=== PATIENT | male | born 1965 | race Caucasian/White ===

== ENCOUNTER 2019-03-16 08:47 | Emergency (ER) | payer OTHER ==
--- NOTE | 2019-03-16 08:49 | PDOC ---
History of Present Illness - General Chief Complaint: Foreign Body (FB) Stated Complaint: RT HAND FB Time Seen by Provider: 03/16/19 08:49 History Source: Patient Exam Limitations: No Limitations - History of Present Illness Initial Comments: 03/16/19 09:04 Mr. 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 Yesterday he was removing a tree limb. He pushed against a part of the tree and got a splinter in the volar surface of the wrist. He pulled out the splinter (which he states was 3 x the length of a tooth pick) and noted a lot of bleeding. Today, he notes some swelling and warmth of the area. No drainage No fever No redness No limitations in range of motion PMH: denies PSH: Left hand surgery Meds: denies ALL: NKDA Social: denies drug use FH: non contributory ROS: GENERAL/CONSTITUTIONAL: No: fever, chills CARDIOVASCULAR: No: chest pain, lightheadedness RESPIRATORY: No: cough, shortness of breath GASTROINTESTINAL: No: nausea, vomiting, abdominal Pain MUSCULOSKELETAL: No: back pain, neck pain, joint pain, muscle swelling or pain SKIN: Hand/Wrist swelling, scab noted NEUROLOGIC: No: paresthesias, weakness of hand PE: GENERAL: The patient is in no acute distress. HEAD: Normal with no signs of trauma. EYES: PERRLA, EOMI, sclera anicteric, conjunctiva clear. ENT: Ears normal, nares patent, oropharynx clear without exudates. Moist mucous membranes. NECK: Normal range of motion, supple LUNGS: Breath sounds equal, clear to auscultation bilaterally. HEART:Regular rate and rhythm ABDOMEN: Soft, nontender EXTREMITIES: Normal range of motion, no erythema or edema. NEUROLOGICAL: Cranial nerves II through XII grossly intact. Normal speech. No focal neurological deficits. Radial, median, ulnar motor and sensation in tact MUSCULOSKELETAL: volar wrist tender to palpation, tenderness of the thenar and hypothenar eminence, tenderness of the palm. SKIN: 5mm scab noted on the volar palm, no expressible purulence or bleeding 03/16/19 09:09 Past History - Past Medical History Allergies/Adverse Reactions: Allergies Allergy/AdvReac Type Severity Reaction Status Date / Time No Known Allergies Allergy Verified 03/16/19 08:49 Home Medications: Ambulatory Orders Cephalexin [Keflex] 500 mg PO Q6H #20 capsule 03/16/19 - Suicide/Smoking/Psychosocial Hx Smoking Status: No Smoking History: Never smoked Number of Cigarettes Smoked Daily: 0 Medical Decision Making - Medical Decision Making 03/16/19 09:05 Pt with removed splinter Unable to palpate additional wood in the hand, so unclear if or where any additional wood would be Unwilling at this time to open hand and search for wood fragments Xrays unlikely to be useful as they are radiolucent case reviewed with Dr. Martin He will see this patient in follow up Will order keflex (to prophylax against local infection) 03/16/19 09:20 Clinical Impression: splinter to wrist, initial impression (no signs of infection/cellulitis) *DC/Admit/Observation/Transfer Diagnosis at time of Disposition: Splinter of hand Qualifiers: Encounter type: initial encounter Laterality: right Qualified Code(s): S60.551A - Superficial foreign body of right hand, initial encounter - Discharge Dispostion Disposition: HOME Condition at time of disposition: Stable - Prescriptions Prescriptions: Cephalexin [Keflex] 500 mg PO Q6H #20 capsule - Referrals - Patient Instructions Printed Discharge Instructions: DI for Splinter Removal Additional Instructions: Matthewjackie thank you for coming in to the ER Please see the hand specialist you can start the antibiotic if it is fine with the hand specialist Return to the ER for fevers, chills, swelling, redness, drainage - Post Discharge Activity Forms/Work/School Notes: Back to Work
[2019-03-16 09:13] VITALS: BP 140/85; PULSE 82; TEMP 98.4; BMI 33.5
== END 2019-03-16 09:30 | disposition home or self-care (01) ==
LOC: FER 08:47
DX: S60.551A Superficial foreign body of right hand, initial encounter (principal)
CPT/HCPCS: 99281-25